=== PATIENT | male | born 1950 | race Caucasian/White ===

== ENCOUNTER 2024-02-04 08:00 | Outpatient (CLI) | payer OTHER ==
[~2024-02-04] VITALS: Ht 177.8 cm; Wt 122.5 kg
== END 2024-02-04 14:47 | disposition home or self-care (01) ==
LOC: SLB 08:00 → EDSTATUS 02-10 09:30
PROVIDERS: ATTEND Student in an Organized Health Care Education/Training Program
DX: M16.11 Unilateral primary osteoarthritis, right hip (principal)
CPT/HCPCS: 87081

== ENCOUNTER 2024-07-27 05:25 | Day surgery (SDC) | payer OTHER ==
[~2024-07-27] VITALS: Ht 177.8 cm; Wt 120.2 kg
[2024-07-27] MEDS ORDERED: GABAPENTIN 300 MG CAPSULE ONE (05:49)
[2024-07-27] MEDS ORDERED: CELECOXIB 100 MG CAPSULE ONE (05:50)
[2024-07-27] MEDS ORDERED: SCOPOLAMINE HYDROBROMIDE 1 MG PATCH .72 H (TRANSDERM-SCOP) TD ONE (05:51)
[2024-07-27] MEDS: ACETAMINOPHEN 500 MG TABLET PO ONE (06:32)
[2024-07-27] MEDS: CELECOXIB 100 MG CAPSULE PO ONE (06:32)
[2024-07-27] MEDS: GABAPENTIN 300 MG CAPSULE PO ONE (06:32)
[2024-07-27] MEDS: SCOPOLAMINE HYDROBROMIDE 1 MG PATCH .72 H (TRANSDERM-SCOP) TD ONE (06:32)
[2024-07-27] MEDS ORDERED: CEFAZOLIN SOD 2 GM in D5W 50 ML IV ONE (07:00)
[2024-07-27] MEDS ORDERED: METOCLOPRAMIDE HCL 10 MG/2 ML VIAL IVP PRN ×2 (07:00→08:15)
[2024-07-27] MEDS ORDERED: DIPHENHYDRAMINE HCL 25 MG CAPSULE PO PRN (07:00)
[2024-07-27] MEDS ORDERED: LACTULOSE 20 GM/30 ML UDC PO PRN (07:00)
[2024-07-27] MEDS ORDERED: BISACODYL 10 MG/SUPPOSITORY RC PRN (07:00)
[2024-07-27] MEDS: oxyCODONE HCL 10 MG TAB.ER.12H PO ONE (07:08)
[2024-07-27] MEDS ORDERED: VANCOMYCIN HCL 1000 MG/VIAL IV ONE (07:10)
[2024-07-27] MEDS ORDERED: PROPOFOL 200MG/ 20ML VIAL (DIPRIVAN) IV ONE (07:10)
[2024-07-27] MEDS ORDERED: ONDANSETRON HCL 4 MG/2 ML VIAL ONE (07:10)
[2024-07-27] MEDS ORDERED: BUPIVACAINE /PF 0.25% 30 ML VIAL INJ ONE (07:10)
[2024-07-27] MEDS ORDERED: TRANEXAMIC ACID 1,000 MG/10 ML VIAL ONE (07:10)
[2024-07-27] MEDS ORDERED: DESFLURANE 15 MIN GAS INH ONE (07:10)
[2024-07-27] MEDS ORDERED: ROCURONIUM BROMIDE 10 MG/ML (ZEMURON) ONE (07:10)
[2024-07-27] MEDS ORDERED: fentaNYL CITRATE/PF 100 MCG/2 ML AMP ONE ×2 (07:10)
[2024-07-27] MEDS ORDERED: SUGAMMADEX SODIUM 200 MG/2 ML VIAL IV ONE (07:10)
[2024-07-27] MEDS ORDERED: LR 1,000 ML IV.SOLN IV ONE (07:10)
[2024-07-27] MEDS ORDERED: ceFAZolin SODIUM 2 GM VIAL ONE (07:10)
[2024-07-27] MEDS ORDERED: LIDOCAINE 2%, 20 ML MDV ONE (07:10)
[2024-07-27] MEDS ORDERED: MIDAZOLAM HCL 2 MG/2 ML VIAL (VERSED) ONE (07:10)
[2024-07-27] MEDS ORDERED: ACETAMINOPHEN 500 MG TABLET ONE (07:47)
[2024-07-27] MEDS ORDERED: ACETAMINOPHEN I.V. 1000 MG 100 ML IV ONE (08:04)
[2024-07-27] MEDS ORDERED: HYDROmorphone 1 MG/ML INJ. CARTRIDGE IVP PRN ×5 (08:15→11:00)
[2024-07-27] MEDS ORDERED: hydrALAZINE HCL 20 MG/ML VIAL IVP PRN (08:15)
[2024-07-27] MEDS ORDERED: ONDANSETRON HCL 4 MG/2 ML VIAL IVP PRN ×2 (08:15→14:15)
[2024-07-27] MEDS ORDERED: MEPERIDINE HCL/PF 25 MG/ML DISP.SYRIN IVP PRN (08:15)
[2024-07-27] MEDS ORDERED: LR 1,000 ML IV SCH (08:15)
[2024-07-27] MEDS: TAMSULOSIN HCL 0.4 MG CAP PO SCH (09:00)
[2024-07-27] MEDS ORDERED: LORATADINE 10 MG TABLET PO PRN (11:00)
[2024-07-27] MEDS ORDERED: traMADol HCL HCL 50 MG TABLET (ULTRAM) PO PRN (11:00)
[2024-07-27] MEDS: TAMSULOSIN HCL 0.4 MG CAP ONE (12:06)
[2024-07-27 13:01] VITALS: BP_SYST 144; PULSE 45; RESP 18; TEMP 98.2; O2SAT 100
[2024-07-27] MEDS ORDERED: CLON0.1T PO (13:22)
[2024-07-27] MEDS ORDERED: IRBE150T48 PO (13:22)
[2024-07-27] MEDS ORDERED: NEU300 PO (13:22)
[2024-07-27] MEDS ORDERED: METF-518 PO (13:22)
[2024-07-27] MEDS ORDERED: LIP80 PO (13:22)
[2024-07-27] MEDS ORDERED: TAMS-11 PO (13:22)
[2024-07-27] MEDS ORDERED: SOLI10TA2 PO (13:22)
[2024-07-27] MEDS ORDERED: INSU100V9 SQ (13:22)
[2024-07-27] MEDS ORDERED: CLOP75TA32 PO (13:22)
[2024-07-27] MEDS ORDERED: HYDR25TA4 PO (13:22)
[2024-07-27] MEDS ORDERED: SYN50 PO (13:22)
[2024-07-27] MEDS: ACETAMINOPHEN 500 MG TABLET PO SCH (14:47)
[2024-07-27] MEDS: KETOROLAC TROMETHAMINE 10 MG TABLET (TORADOL) PO SCH (14:47)
[2024-07-27] MEDS: ceFAZolin SODIUM 2 GM in D5W 50 ML IV SCH (16:25)
[2024-07-27 16:35] VITALS: PULSE 43; RESP 19; TEMP 97; O2SAT 99
[2024-07-27 16:43] VITALS: BP_SYST 144; PULSE 45; RESP 18; TEMP 98.2; O2SAT 100
[2024-07-27 17:37] VITALS: BP_SYST 151
[2024-07-27 20:00] VITALS: BP_SYST 137; PULSE 76; RESP 20; TEMP 97.2; O2SAT 95; O2SAT 96
[2024-07-27] MEDS: SENNOSIDES/DOCUSATE SODIUM 1 TAB TABLET(SENOKOT-S) PO SCH (22:18)
[2024-07-28 01:00] VITALS: BP_SYST 143; PULSE 68; RESP 18; TEMP 98.3; O2SAT 96
[2024-07-28 06:59] LABS: BASOPHILS % (AUTO) 0.1 % (0.0-2.0); HEMATOCRIT 32.1 % (36-54); HEMOGLOBIN 10.7 g/dL (14.0-18.0); LYMPHOCYTES # (AUTO) 0.7 K/uL (1.0-5.5); LYMPHOCYTES % (AUTO) 7.1 % (20.5-51.5); MEAN CORPUSCULAR HEMOGLOBIN 31 pg (27-31); MEAN CORPUSCULAR HGB CONC 33 % (32-36); MEAN CORPUSCULAR VOLUME 93 fL (79.0-98.0); MONOCYTES % (AUTO) 10.3 % (1.7-9.3); NEUTROPHILS # (AUTO) 7.6 K/uL (1.8-7.7); NEUTROPHILS % (AUTO) 82.5 % (40.0-70.0); PLATELET COUNT (AUTO) 130 K/uL (130-430); RED BLOOD CELL COUNT(AUTO) 3.45 MIL/uL (4.2-6.2); RED CELL DISTRIBUTION WIDTH 14.9 % (9.0-15.0); WHITE BLOOD COUNT (AUTO) 9.2 K/uL (4.8-10.8)
[2024-07-28 07:20] LABS: ALANINE AMINOTRANSFERASE 20 U/L (12-78); ALBUMIN 3.1 g/dL (3.4-4.8); ANION GAP 9 (5-15); ASPARTATE AMINOTRANSFERASE 27 U/L (10-37); CALCIUM 8.5 mg/dL (8.4-11.0); CARBON DIOXIDE 25 mmol/L (23-29); CHLORIDE 103 mmol/L (98-107); CREATININE 1.15 mg/dL (0.55-1.30); GLUCOSE 201 mg/dL (74-106); SODIUM SERUM 137 mmol/L (136-145); TOTAL BILIRUBIN 0.5 mg/dL (0.0-1.0); TOTAL PROTEIN, SERUM 6.3 g/dL (6.4-8.3); UREA NITROGEN, BLOOD 37 mg/dL (8-21)
[2024-07-28 07:23] LABS: POTASSIUM 5.9 mmol/L (3.5-5.1)
[2024-07-28] MEDS ORDERED: GLUCOSE (DEXTROSE) ORAL GEL -Adults PO PRN (07:30)
[2024-07-28] MEDS ORDERED: D5W 1,000 ML IV PRN (07:30)
[2024-07-28] MEDS ORDERED: DEXTROSE 50% JECT 50 ML DISP.SYRIN IVP PRN (07:30)
[2024-07-28 07:50] VITALS: BP_SYST 138; PULSE 57; RESP 16; TEMP 97.5; O2SAT 97
[2024-07-28] MEDS: ATORVASTATIN 20 MG TABLET PO SCH (09:20)
[2024-07-28] MEDS: CLOPIDOGREL BISULFATE 75 MG TABLET PO ONE (11:45)
[2024-07-28] MEDS: SODIUM POLYSTYRENE SULFONATE 15 GM/60 ML UDBTL PO ONE (11:45)
[2024-07-28] MEDS: CELECOXIB 200 MG CAPSULE PO SCH (11:45)
[2024-07-28] MEDS: INSULIN LISPRO SLIDING SCALE 100 UNITS/ML, 3 ML VIAL (humaLOG) SUBCUT PRN (11:56)
[2024-07-28 12:01] VITALS: BP_SYST 140; PULSE 72; RESP 17; TEMP 98; O2SAT 98
[2024-07-28 16:05] VITALS: BP_SYST 142; PULSE 97; RESP 18; TEMP 98.1; O2SAT 97
[2024-07-28 17:25] LABS: ANION GAP 9 (5-15); CALCIUM 8.7 mg/dL (8.4-11.0); CARBON DIOXIDE 28 mmol/L (23-29); CHLORIDE 103 mmol/L (98-107); CREATININE 1.32 mg/dL (0.55-1.30); GLUCOSE 202 mg/dL (74-106); POTASSIUM 4.9 mmol/L (3.5-5.1); SODIUM SERUM 140 mmol/L (136-145); UREA NITROGEN, BLOOD 38 mg/dL (8-21)
[2024-07-28 20:00] VITALS: BP_SYST 149; PULSE 69; RESP 18; TEMP 98.8; O2SAT 98
[2024-07-28 21:45] VITALS: O2SAT 97
[2024-07-29] VITALS: BP_SYST 141; PULSE 69; RESP 17; TEMP 98.2; O2SAT 97
[2024-07-29] MEDS: LEVOTHYROXINE SODIUM 0.05 MG TABLET PO SCH (06:04)
[2024-07-29 08:00] VITALS: BP_SYST 138; PULSE 57; RESP 16; TEMP 97.5; O2SAT 97
[2024-07-29] MEDS: oxyCODONE HCL 5 MG TABLET PO PRN ×2 (09:19)
[2024-07-29] MEDS: CLOPIDOGREL BISULFATE 75 MG TABLET PO SCH (09:20)
[2024-07-29 11:14] VITALS: BP_SYST 140; PULSE 67; RESP 16; TEMP 98.4; O2SAT 97
[2024-07-29] MEDS ORDERED: PATI8.4P PO (11:17)
[2024-07-29 12:00] VITALS: BP_SYST 139; PULSE 60; RESP 17; TEMP 97.8; O2SAT 97
== END 2024-07-29 15:15 | disposition home or self-care (01) ==
LOC: SDS 05:25 → SMU 05:25 → SDS 07-29 15:15
PROVIDERS: ATTEND Student in an Organized Health Care Education/Training Program
DX: M16.11 Unilateral primary osteoarthritis, right hip (principal); M25.551 Pain in right hip; I10 Essential (primary) hypertension; E11.9 Type 2 diabetes mellitus without complications; E66.9 Obesity, unspecified; E78.5 Hyperlipidemia, unspecified; E11.40 Type 2 diabetes mellitus with diabetic neuropathy, unspecified; E03.9 Hypothyroidism, unspecified; G89.18 Other acute postprocedural pain; Z68.38 Body mass index [BMI] 38.0-38.9, adult; Z90.49 Acquired absence of other specified parts of digestive tract; Z96.651 Presence of right artificial knee joint; Z98.890 Other specified postprocedural states; Z88.8 Allergy status to other drugs, medicaments and biological substances; Z79.890 Hormone replacement therapy; Z79.899 Other long term (current) drug therapy; Z83.3 Family history of diabetes mellitus
CPT/HCPCS: 87081; 27130; 97162; 64447; 80053; 84132; 85025; 36415; 72170; 73501; 97110 ×3; 97530 ×3; 97116 ×3; 82948; 88304; 88311; 96379; J3490 ×3; J0690; J0696; J2003; J2250; J2405; J2704; J3370; J3010; J7060 ×2; J7120; A4649; C1776 ×4; C1713; J0131; J7030; 80048